=== PATIENT | female | born 1965 | race Two or more races ===

== ENCOUNTER → 2024-10-17 | Outpatient (CLI) | payer MEDICAID, SELFPAY ==
--- NOTE | 2024-10-17 10:00 | XR_ITS ---
Examination: Breast ultrasound complete, bilateral Date and time of exam: October 17, 2024 1023 hours INDICATIONS: Breast pain one year Technique: Real-time grayscale ultrasonographic imaging bilateral breasts, including all 4 quadrants as well as nipple retroareolar and axillary regions. Findings: Sonographic images right breast 2:00 cyst 7 x 6 mm Axillary probable lipoma 15 x 12 mm Sonographic images left breast 9:00 cyst 4 x 4 millimeter IMPRESSION: BI-RADS Category 3: Probably benign findings One additional 6 month right breast axillary sonography follow-up recommended to document stability of probably benign lipoma in the right axilla
== END | disposition home or self-care (01) ==
LOC: CDIM 09:59
PROVIDERS: PCP Family Medicine; Referring Provider Family Medicine; Visit Provider Family Medicine
DX: R92.8 Other abnormal and inconclusive findings on diagnostic imaging of breast (principal)
CPT/HCPCS: 76641